=== PATIENT | male | born 1985 | race Caucasian/White ===

== ENCOUNTER 2017-04-04 17:17 | Emergency (ER) | payer OTHER ==
[~2017-04-04] VITALS: Ht 167.6 cm; Wt 81.7 kg
[2017-04-04 17:21] VITALS: BP 111/67
[2017-04-04] MEDS ORDERED: NORCO 5-325 TA1 EACH PO (17:37)
[2017-04-04] MEDS ORDERED: AMOXICILLIN 50500 M1 PO (17:37)
[2017-04-04] MEDS ORDERED: CORTISPORIN OTI10 M2 OTIC (17:37)
== END 2017-04-04 18:09 | disposition home or self-care (01) ==
LOC: ER 17:17
DX: H60.91 Unspecified otitis externa, right ear (principal); H66.91 Otitis media, unspecified, right ear